=== PATIENT | male | born 1960 | race Two or more races ===

== ENCOUNTER 2018-07-05 02:15 | Emergency (ER) | payer OTHER ==
[~2018-07-05] VITALS: Ht 177.8 cm; Wt 94.8 kg
[2018-07-05 02:30] VITALS: BP 134/98
--- NOTE | 2018-07-05 02:42 | NUR ---
[employer] ASSEM[employer]ER AT BEDSIDE FOR XRAY.
[2018-07-05] MEDS ORDERED: HYDROCODONE/APAP 10/325MG 1 EA TABLET ONE (02:43)
[2018-07-05] MEDS ORDERED: HYDROCODONE/APAP 10/325MG 1 EA TABLET PO ONE (03:00)
[2018-07-05] MEDS ORDERED: SULFAMETH/TRIMETH 800/160 MG 1 UDTAB TABLET PO ONE (03:30)
== END 2018-07-05 03:28 | disposition home or self-care (01) ==
LOC: ER 02:19
DX: M79.672 Pain in left foot (principal); M25.511 Pain in right shoulder; G89.29 Other chronic pain; Z60.2 Problems related to living alone; V49.69XA Unspecified car occupant injured in collision with other motor vehicles in traffic accident, initial encounter; Y93.89 Activity, other specified; Y92.413 State road as the place of occurrence of the external cause; Y99.8 Other external cause status
CPT/HCPCS: 73030; 73630; 99283; A4606

== ENCOUNTER 2018-09-07 15:26 | Emergency (ER) | payer OTHER ==
[~2018-09-07] VITALS: Ht 165.1 cm; Wt 77.1 kg
--- NOTE | 2018-09-07 15:35 | NUR ---
DR UREÑA AT BEDSIDE FOR EVAL.
[2018-09-07] MEDS ORDERED: IV NS 0.9% 1,000 ML BAG IV ONE (16:00)
--- NOTE | 2018-09-07 16:09 | NUR ---
RADIOLOGY AT BEDSIDE FOR CHEST XRAY.
--- NOTE | 2018-09-07 16:26 | NUR ---
PT TO RADIOLOGY FOR HEAD CT SCAN VIA [facility].
[2018-09-07 16:28] LABS: BASOPHILS # (AUTO) 0.1 /CMM (0.0-0.2); BASOPHILS % (AUTO) 0.9 % (0.0-2.0); EOSINOPHILS % (AUTO) 1.5 % (0.0-6.0); HEMATOCRIT 49 % (39-51); HEMOGLOBIN 16.5 g/dL (13.5-17.5); LYMPHOCYTES # (AUTO) 1.6 /CMM (0.8-4.8); LYMPHOCYTES % (AUTO) 21.1 % (20.0-44.0); MEAN CORPUSCULAR HGB CONC 34 g/dl (31.0-36.0); MEAN CORPUSCULAR VOLUME 88 fL (80-96); MONOCYTES # (AUTO) 0.6 /CMM (0.1-1.30); MONOCYTES % (AUTO) 7.2 % (2.0-12.0); NEUTROPHILS # (AUTO) 5.4 /CMM (1.8-8.9); NEUTROPHILS % (AUTO) 69.3 % (43.0-81.0); PLATELET COUNT (AUTO) 267 /CMM (150-450); RED BLOOD CELL COUNT(AUTO) 5.56 MIL/uL (4.5-6.0); WHITE BLOOD COUNT (AUTO) 7.8 K/uL (4.3-11.0)
[2018-09-07 16:34] LABS: CALCIUM, SERUM 8.4 mg/dL (8.5-10.1); CARBON DIOXIDE 30 mmol/L (21-32); CHLORIDE 106 mmol/L (98-107); CREATININE 0.9 mg/dL (0.6-1.3); GLUCOSE 110 mg/dL (74-106); POTASSIUM 4.9 mmol/L (3.5-5.1); SODIUM SERUM 141 mmol/L (136-145); UREA NITROGEN, BLOOD 24 mg/dL (7-18)
[2018-09-07 16:41] LABS: ACETAMINOPHEN < 10 ug/ml (10-30); ALANINE AMINOTRANSFERASE 22 U/L (12-78); ALBUMIN 3.4 g/dL (3.4-5.0); ALCOHOL, BLOOD < 3 mg/dL (0-0); ALKALINE PHOSPHATASE 124 U/L (46-116); ASPARTATE AMINOTRANSFERASE 19 U/L (15-37); BILIRUBIN,TOTAL 0.5 mg/dL (0.2-1.0); SALICYLATE 1.5 mg/dL (2.8-20.0); TOTAL PROTEIN, SERUM 6.6 g/dL (6.4-8.2)
--- NOTE | 2018-09-07 16:45 | NUR ---
PT UNABLE TO PROVIDE URINE SAMPLE AT THIS TIME.
[2018-09-07] MEDS ORDERED: MECLIZINE HCL 12.5 MG TABLET ONE (16:55)
[2018-09-07 16:59] LABS: SERUM AMMONIA 8 umol/L (11-32)
[2018-09-07] MEDS ORDERED: MECLIZINE HCL 12.5 MG TABLET PO ONE (17:00)
--- NOTE | 2018-09-07 17:40 | NUR ---
MEDICALLY CLEARED. D/C TO REFRIGERATING TECHNICIAN IN STABLE CONDITION.
[2018-09-07 17:52] VITALS: BP 118/77
== END 2018-09-07 17:53 ==
LOC: ER 15:30
DX: R42 Dizziness and giddiness (principal); R53.1 Weakness; R41.82 Altered mental status, unspecified; Z60.2 Problems related to living alone
CPT/HCPCS: 36415; 70450; 71045; 80048; 80076; 80307; 80329; 82140; 84484; 85025; 85730; 96360; 99284; G0480; J7030; J8597